=== PATIENT | female | born 1990 | race Caucasian/White ===

== ENCOUNTER → 2017-11-07 13:16 | Outpatient (CLI) | payer OTHER ==
[~2017-11-07 13:16] MED LIST: PRENATAL + DHA1 EAC1
== END | disposition home or self-care (01) ==
LOC: LAB 13:16
DX: Z34.00 Encounter for supervision of normal first pregnancy, unspecified trimester (principal)

== ENCOUNTER 2017-11-07 13:42 | Outpatient (CLI) | payer OTHER | END 2017-11-07 13:59 | disposition home or self-care (01) | LOC: SONOGRAMA 13:42 | DX: N64.89 Other specified disorders of breast (principal); Z34.02 Encounter for supervision of normal first pregnancy, second trimester ==

== ENCOUNTER 2019-02-12 17:06 | Emergency (ER) | payer OTHER ==
[~2019-02-12] VITALS: Ht 350.5 cm; Wt 70.3 kg
== END 2019-02-12 22:40 | disposition home or self-care (01) ==
LOC: ER 17:06
DX: K52.89 Other specified noninfective gastroenteritis and colitis (principal); B34.9 Viral infection, unspecified; R10.84 Generalized abdominal pain